=== PATIENT | male | born 1960 | race Caucasian/White ===

== ENCOUNTER 2023-12-27 07:08 | Emergency (ER) | payer OTHER, SELFPAY ==
[2023-12-27 07:08] VITALS: BP 187/93; BP 188/99; PULSE 112; PULSE 113; RESP 16; TEMP 36.8; O2SAT 98
--- NOTE | 2023-12-27 07:13 | EX.ED.DYSGE1 ---
HPI History of Present Illness Chief Complaint: Weakness Informant: patient Onset/Context/Timing Onset: Yesterday Context: Sudden Onset Timing: Continuous Quality: Aching Location: Right hip and proximal femur Worsened by: Weightbearing Relieved by: Nothing Narrative Narrative: Patient presents with pain in his right hip and femur that began yesterday. Patient states he twisted and felt a pop in his right hip and proximal thigh. Patient states he has been having difficulty bearing weight since this time. Patient states he has had weakness for approximately 2-1/2 years. Patient states this got worse yesterday when he had the popping sensation in his hip. Patient denies any paresthesias. PFSH PFSH Medical History no medical history no medical history Home Medications ?Medication ?Instructions ?Recorded ?Last Taken ?Type hydrocodone-acetaminophen 5-325mg 1 tab PO Q6H PRN PRN Pain 3 days 12/27/23 Unknown Rx 5mg-325mg #10 TABLETS Allergy/AdvReac Type Severity Reaction Status Date / Time No Known Allergies Allergy Verified 12/27/23 07:09 Surgical History no surgical history no surgical history Social History (Updated 12/27/23 @ 08:[address] Hi cMcloud, DO) Smoking Status: Current every day smoker tobacco type: cigarettes alcohol intake: current alcohol intake frequency: 3 or more drinks per day Alcohol type: hard liquor ROS ROS ED Constitutional Constitutional ED: Denies chills or fever(s) Eyes Eyes: Denies blurry vision or change in vision ENT ENT ED: Denies rhinorrhea or sore throat Cardiovascular Cardiovascular: Denies chest pain or palpitations Respiratory/Chest Respiratory/Chest: Denies cough or dyspnea Gastrointestinal Gastrointestinal: Denies nausea or vomiting Genitourinary Genitourinary ED: Denies dysuria or hematuria Musculoskeletal Musculoskeletal: Reports neck pain; Denies back pain Integumentary Denies abscess or rash Neurologic Neurologic: Reports weakness; Denies headache(s) Allergic/Immunologic Allergic/Immunologic ED: Denies mouth swelling or urticaria EXAM Physical Exam Const Vital Signs: 12/27/23 07:08 12/27/23 07:08 12/27/23 08:23 Temperature 98.2 F Temperature Source Oral Pulse Rate 113 H 112 H Respiratory Rate 16 16 Respiratory Effort Normal Non-Labored Respiratory Pattern Normal Blood Pressure 187/93 H 188/99 H Blood Pressure Mean 124 128 Pulse Ox 98 98 Oxygen Delivery Method Room Air Room Air Positive well nourished and well developed General Appearance ED: well developed and NAD HEENT Reports moist mucous membranes Neck supple and no JVD Extremity Extremity Narrative: There is tenderness to palpation over the right hip and proximal femur. There is no obvious deformity noted. There is no bony crepitance or step-off. There is minimal pain with internal and external rotation of the right lower extremity. Pedal pulses are equal bilateral. Sensation is intact to light touch bilaterally in the lower extremities. Strength is 5/5 bilateral in the lower extremities. Neuro oriented x3, CN's II-XII intact bilaterally and no sensory deficits noted Sensorium / Orientation: alert Motor Exam: strength 5/5 throughout MDM MDM MDM Narrative Medical decision making narrative: Differential diagnosis includes fracture, sprain, and contusion. X-rays of the right hip and right femur will be obtained to assess for fracture and dislocation. Radiography Diagnostic Testing: Clinical Impression(s) from Imaging Studies Femur X-Ray 12/27/23 08:28 IMPRESSION: No demonstrated fracture. Electronically Signed: Carmine Whitten MD at 8:55 EDT , Pelvis X-Ray 12/27/23 08:28 IMPRESSION: 1. Left superior and inferior pubic rami fractures. Electronically Signed: Carson Holm MD at 9:07 EDT , X-rays of the right femur were obtained. There are 4 views. On my independent interpretation, there is no acute fracture or dislocation noted. Radiologist also interpreted the x-rays and agrees. X-rays of the pelvis were obtained. There are 2 views. On my independent interpretation, there are nondisplaced fractures of the right superior and inferior pubic rami. Radiologist also interpreted the x-rays and agrees. Treatment and Re-Evaluation :: Patient was given a dose of J[place] here. Patient was able to ambulate in the emergency department with a walker. Patient states he felt safe ambulating with a walker. Patient was given a walker here. Patient was given a prescription for a short course of J[place]ura. Patient is given referral for primary care physician for follow-up care. Patient was instructed use ice to the area. Patient understood and was agreeable with the plan. All questions were answered. Discharge Plan Triage Chief Complaint: Weakness ED Provider: Hi Mccloud Dx/Rx/DC Orders Clinical Impression: Closed fracture of right inferior pubic ramus, Closed fracture of right superior pubic ramus Instructions: ED Pelvic Fracture Prescriptions: New hydrocodone-acetaminophen 5-325 mg tablet 1 tab PO Q6H PRN PRN (Reason: Pain) 3 Days Qty: 10 0RF Primary Care Provider: Care Physician,No Primary Referrals: Care Physician,No Primary [Primary Care Provider] - Print Language: Martiniquais Disposition Disposition: Home, Self Care
[2023-12-27] MEDS: HYDROcodone Bitartrate/Apap 5/325 Tablet PO (08:20)
[2023-12-27 08:22] VITALS: BMI 14.1
--- NOTE | 2023-12-27 08:28 | RAD_ITS ---
STUDY: X-RAY - PELVIS REASON FOR EXAM: Male, 63 years old. Injury/Pain TECHNIQUE: One view of the pelvis was obtained. COMPARISON: None. FINDINGS: A mildly displaced oblique fractures present through the mid aspect of the right inferior pubic ramus with minimal cortical offset. A small linear nondisplaced fractures also present through the medial aspect of the right superior pubic ramus. No fractures are seen in the hips. There is a non-specific bowel gas pattern. Normal visualized soft tissue structures. Normal bilateral iliac wings, sacroiliac joints and visualized sacrum. Normal pubic symphysis. Normal ischial tuberosities. Normal visualized right femoral head. Normal right acetabulum. Normal right hip joint. Normal visualized left femoral head. Normal left acetabulum. Normal left hip joint. Mild atherosclerotic plaque is present. RAD/Pelvis 1 or 2 Views IMPRESSION: 1. Left superior and inferior pubic rami fractures. Electronically Signed: Carson Holm MD at 9:07 EDT ,
--- NOTE | 2023-12-27 08:28 | RAD_ITS ---
STUDY: X-RAY - RIGHT FEMUR REASON FOR STUDY: Male, 63 years old. Injury / Pain TECHNIQUE: 4 views of the right femur. COMPARISON: None. FINDINGS: Normal visualized femur. There is no demonstrated fracture or destructive process. There are atherosclerotic vascular calcifications. RAD/Femur Min 2 Views IMPRESSION: No demonstrated fracture. Electronically Signed: Carmine Whitten MD at 8:55 EDT ,
[2023-12-27 09:43] VITALS: O2SAT 95
[2023-12-27 10:03] VITALS: BP 138/77; PULSE 76; RESP 15; TEMP 36.4; O2SAT 95
[2023-12-27 10:28] VITALS: BP 119/76; PULSE 64; RESP 15; TEMP 36.8; O2SAT 96
== END 2023-12-27 10:29 | disposition home or self-care (01) ==
PROVIDERS: Emergency Provider Emergency Medicine; Visit Provider Emergency Medicine
DX: S32.511A Fracture of superior rim of right pubis, initial encounter for closed fracture (principal); S32.591A Other specified fracture of right pubis, initial encounter for closed fracture; X50.1XXA Overexertion from prolonged static or awkward postures, initial encounter; F17.210 Nicotine dependence, cigarettes, uncomplicated
CPT/HCPCS: 72170; 73552; 99282

== ENCOUNTER 2024-07-16 09:38 | Inpatient (IN) | payer OTHER, SELFPAY ==
[2024-07-16] VITALS (50 sets, daily range): BP systolic 42–130; BP diastolic 16–97; PULSE 74–133; RESP 14–38; TEMP 35–37.8; O2SAT 55–97; BMI 18.3; BMI 16.0
--- NOTE | 2024-07-16 10:05 | RAD_ITS ---
PROCEDURE: CHEST 1 VIEW (PORTABLE) 07/16/2024 REASON FOR EXAM: LINE PLACEMENT TECHNIQUE: Frontal view of the chest. COMPARISON: None FINDINGS: There is an ET tube in position with its tip 5 cm above the level of the lamine. There is a central line on the right with its tip in the superior vena cava above the right atrium. There is an enteric tube with its tip below the field of view of this exam. There is interstitial and alveolar infiltrate throughout the right lung with consolidation in the lower aspect of the upper lobe. There is no pneumothorax or significant effusion. There is no visible acute bony abnormality. Aortic calcifications are noted. RAD/Chest 1 View (Portable) IMPRESSION: Tubes and lines in position. There is interstitial and alveolar infiltrate throughout the right lung with co nsolidation in the lower aspect of the upper lobe. Reading Location: [facility]
--- NOTE | 2024-07-16 10:05 | EKG12_ITS ---
Test Reason : UNRESPONSIVE Blood Pressure : */* mmHG Vent. Rate : 89 BPM Atrial Rate : 89 BPM P-R Int : 126 ms QRS Dur : 78 ms QT Int : 404 ms P-R-T Axes : 77 74 74 degrees QTcB Int : 491 ms Normal sinus rhythm Prolonged QT Abnormal ECG Confirmed by Kendrick Hayes ([id number]), sports editor SACHA NOLAN ([id number]) on 07/17/2024 9:08:44 AM Referred By: Confirmed By: Kendrick Hayes
[2024-07-16] MEDS: 0.9% Normal Saline (1000mL) 1,000 ML 999 ML IV ×3 (10:07→15:41)
[2024-07-16] MEDS: Norepinephrine 8 MG in 0.9% Normal Saline (250mL Bag) 242 ML 9.4 MG CONT INF (10:08)
[2024-07-16] MEDS: fentaNYL 100 MCG/2 ML Ampul 50 MCG IV (10:25)
[2024-07-16] MEDS: Propofol 10MG/Ml 1,000 MG/100 ML Bottle 3.4 MG CONT INF (10:28)
[2024-07-16 10:29] LABS: Hematocrit 35.7 % (40-54); Hemoglobin 11.6 g/dL (13.0-16.5); Mean Corp Hgb Conc 32.5 g/dL (32-36); Mean Corpuscular Hgb 33.3 pg (27.0-32.0); Mean Corpuscular Volume 102.6 fL (80-94); POSITIVE COUNT YES; POSITIVE MORPHOLOGY YES; Platelet Count 210 K/mm3 (150-450); RBC Distribution Width CV 14.7 % (11.6-14.6); RBC Distribution Width SD 55.4 fl (35.1-43.9); Red Blood Count 3.48 M/mm3 (4.6-6.2); White Blood Count 20.2 K/mm3 (4.4-11.0)
[2024-07-16 10:31] LABS: Base Excess -6 mmol/L (-2 to +2); Bicarbonate 21.2 mmol/L (22-26); Blood Gas Specimen Type ART; Mode AC; O2 Delivery Device Adult Vent; PEEP 5; PO2 77 mmHG (75-100); RR 14; SITE R Brach; SO2 93 % (95-99); Total Carbon Dioxide 23 mmol/L; pCO2 48.7 mmHg (35-45); pH 7.25 (7.35-7.45)
[2024-07-16] MEDS: Piperacil/Tazobactam 4.5 GM in 0.9% Normal Saline (100mL MB+) 100 ML IV (10:31)
[2024-07-16 10:32] LABS: Differential Indicated MANUAL DIFF
[2024-07-16 10:34] LABS: International Normalized Ratio 1.4
[2024-07-16 10:35] LABS: Partial Thromboplast Time 26.7 Seconds (24.1-36.2)
[2024-07-16 10:50] LABS: Acetaminophen (Tylenol) Level < 5.0 ug/mL (8.0-19.0); Alcohol, Blood (Medical)-Serum < 10.1 mg/dL (<=10.0); Salicylate < 0.5 mg/dL (2.8-20.0)
[2024-07-16 11:09] LABS: Lymphocyte 6 % (19-41); Metamyelocyte 5 % (0-1); Neutrophil-Band 14 % (0-5); Neutrophil-Segmented 71 % (47-70); Platelet Estimate ADEQUATE (ADEQ); Promyelocyte 4 % (0-0); Red Cell Morphology NORM C+C NORMAL (NORM C&C); Total Cells Counted 100 (MANUAL DIFF); Toxic Granulation 2+
[2024-07-16 11:10] LABS: Absolute Neutrophil Count 17.2 X10^3/uL (2.0-7.7)
[2024-07-16 11:11] LABS: Pathologist Review May foll
[2024-07-16 11:14] LABS: ALB/GLOB Ratio 0.4 RATIO (0.9-2.4); AST(SGOT) 89 U/L (<=37); Alanine Aminotransfer ALT/SGPT 32 U/L (<=46); Albumin, Serum 1.7 g/dL (3.4-4.8); Alkaline Phosphatase 61 U/L (40-129); Anion Gap 30 (5-15); BUN 123 mg/dL (4-19); BUN/Creat Ratio 27.9 RATIO (10-20); CPK Total, Creatine Kinase 416 U/L (24-195); Calcium,Total 7.7 mg/dL (7.6-11.0); Carbon Dioxide 19.6 mmol/L (21.0-32.0); Chloride 104 mmol/L (98-108); Creatinine, Serum 4.41 mg/dL (0.70-1.20); EST Glomerular Filtration Rate 14 (>60); Estimated Creatinine Clearance 13.88 ml/min (50-250); Globulin 3.7 g/dL (2.2-4.2); Glucose 151 mg/dL (70-99); Potassium 5.3 mmol/L (3.3-5.1); Protein, Total 5.4 g/dL (5.9-8.4); Sodium Level 153 mmol/L (133-145); Total Bilirubin 1.41 mg/dL (0.00-1.30); Troponin T High Sensitivity 71 ng/L (<=22)
[2024-07-16 11:15] LABS: Lactic Acid 10.9 mmol/L (0.0-2.0)
--- NOTE | 2024-07-16 11:27 | CT_ITS ---
PROCEDURE: BRAIN/HEAD WITHOUT CONTRAST 07/16/2024 REASON FOR EXAM: AMS Unresponsive. TECHNIQUE: Head CT without intravenous contrast. Coronal and Sagittal reconstruction series were provided. One or more dose reduction techniques were used (e.g., Automated exposure control, adjustment of the mA and/or kV according to patient size, use of iterative reconstruction technique. RADIATION DOSE SUMMARY: CTDlvol: 44.99 mGy COMPARISON: None FINDINGS: Brain: Low density in the periventricular white matter suggests mild chronic small vessel ischemic changes. CSF Spaces: Mild generalized cerebral atrophy Sinuses/Mastoids: Clear at visualized levels Bones: Unremarkable CT/Brain/Head without Contrast IMPRESSION: NO ACUTE FINDINGS Reading Location: [id number]
--- NOTE | 2024-07-16 11:27 | CT_ITS ---
PROCEDURE: SPINE CERVICAL WITHOUT CONTRAS 07/16/2024 REASON FOR EXAM: AMS TECHNIQUE: Cervical spine CT without contrast. Coronal and Sagittal reconstruction series were provided. One or more dose reduction techniques were used (e.g., Automated exposure control, adjustment of the mA and/or kV according to patient size, use of iterative reconstruction technique COMPARISON: None FINDINGS: An endotracheal tube is in-situ. Nasogastric tube is seen. It is seen traversing from the right side of the oropharynx into the esophagus. Alignment: Normal Vertebrae: Anterior spondylosis at multiple levels. Soft Tissues: Small amount of air is seen in the right prevertebral space. In the region of the origin of the esophagus at the C6-C7 level. A right-sided subclavian catheter is seen at that site. The air may be related to the insertion of the catheter. Atherosclerotic plaque formation of the carotid bifurcations bilaterally. Diffuse emphysematous changes in the upper lobes with consolidation in the posterior aspect of the right upper lobe. C1-2: Unremarkable C2-3: Unremarkable C3-4: Mild degree of disc space narrowing. Spondylosis. Uncovertebral arthrosis. Mild degree of bilateral neural foraminal stenosis. C4-5: Mild degree of disc space narrowing. Spondylosis. Uncovertebral arthrosis. Facet joint osteoarthritis. Mild degree of bilateral neural foraminal stenosis. C5-6: Moderate degree of disc space narrowing. Spondylosis. Facet joint osteoarthritis. Bilateral neural foraminal stenosis. C6-7: Moderate degree of disc space narrowing and spondylosis. Facet joint osteoarthritis. C7-T1: Degenerative changes. CT/Spine Cervical without Contras IMPRESSION: NO ACUTE CERVICAL FRACTURE. Endotracheal tube is seen as well as nasogastric tube. A right-sided central v enous catheter has been placed. Small amount of air is seen in the soft tissues as described in the prevertebra l space most likely secondary to the catheter placement. Reading Location: [facility]
--- NOTE | 2024-07-16 11:29 | CT_ITS ---
PROCEDURE: CT CHEST, ABD, PELVIS WO CONT 07/16/2024 REASON FOR EXAM: AMS HYPOTENSION TECHNIQUE: Chest, abdomen and pelvis CT without intravenous contrast. Coronal and Sagittal reconstruction series were provided. One or more dose reduction techniques were used (e.g., Automated exposure control, adjustment of the mA and/or kV according to patient size, use of iterative reconstruction technique. RADIATION DOSE SUMMARY: CTDlvol: 12.67 mGy DLP: 1157.75 mGycm COMPARISON: None FINDINGS: CT CHEST: Hardware: An endotracheal tube is in-situ. A nasogastric tube seen as well as a right-sided central venous catheter. Small amount of air is seen in the soft tissues secondary to the insertion of the right central line. Lymph nodes: Small benign-appearing mediastinal lymph nodes. Heart and Vasculature: Coronary artery calcifications are noted. Atherosclerotic calcifications of the thoracic aorta. Thoracic aorta and pulmonary arteries have normal contours; noncontrast technique limits evaluation. Coronary Artery Calcifications: Present Lungs and Airways: Dense consolidation in the posterior aspect of the right upper lobe with evidence of diffuse emphysematous changes worse in the right upper lobe. Dense consolidation is also seen in the right lower lobe. Mild increased markings at the left lung base. Pleura: No significant effusion is seen. Bones: Degenerative changes of the thoracic spine. CT ABDOMEN / PELVIS: Noncontrast technique limits evaluation of the abdominal and pelvic viscera. Liver: Normal size. No mass. Gallbladder: Sludge is seen within the gallbladder lumen. Spleen: Normal size. Pancreas: Normal size without evidence of mass surrounding inflammation or ductal dilation. Adrenals: Unremarkable Kidneys: Normal renal sizes. No hydronephrosis. Bladder: A catheter is seen within the urinary bladder. Mild degree of bladder wall thickening. Bowel: Colonic diverticulosis without diverticulitis. Appendix: The appendix is not identified. There is no inflammatory process identified in the right lower quadrant to suggest appendicitis. Lymph nodes: Unremarkable. Vasculature: Mild diffuse atherosclerotic calcifications are noted. Peritoneum / Retroperitoneum: Unremarkable Bones: Degenerative changes of the spine. CT/CT Chest, Abd, Pelvis WO Cont IMPRESSION: Consolidation in the right lung as described. A Mendez catheter is seen within the urinary bladder. Sludge is seen within the dependent portion of the gallbladder. Reading Location: [id number]
--- NOTE | 2024-07-16 11:50 | EX.ED.DYSGE1 ---
HPI History of Present Illness Chief Complaint: Unresponsive Informant: EMS Narrative Narrative: 64-year-old male was reportedly found unresponsive on the floor of his residence today. EMS arrived. They note that the patient was surrounded by a large volume of cognac bottles. He was last reportedly seen on Tuesday. Patient cannot provide any information. EMS notes hypotension and unresponsiveness. PFSH PFSH Allergy/AdvReac Type Severity Reaction Status Date / Time No Known Allergies Allergy Verified 07/16/24 14:56 Social History (Updated 07/16/24 @ 11:[address] Jesus Bourgeois, DO) Smoking Status: Current every day smoker alcohol intake: current alcohol intake frequency: 3 or more drinks per day Alcohol type: hard liquor ROS ROS ED Review of Systems ROS Unobtainable: due to mental status EXAM Physical Exam Const Vital Signs: 07/16/24 09:39 07/16/24 09:39 07/16/24 09:40 Temperature 95 F L Temperature Source Temporal Pulse Rate 78 Respiratory Rate 20 H Respiratory Depth Normal Respiratory Pattern Normal Blood Pressure 56/27 L 82/68 L Blood Pressure Mean 36 72 Pulse Ox 75 Oxygen Delivery Method Room Air Fraction of Inspired Oxygen (FIO2) 07/16/24 10:01 07/16/24 10:05 07/16/24 10:09 Temperature 100.1 F H Temperature Source Core Pulse Rate 96 Respiratory Rate 20 H 20 H Respiratory Depth Respiratory Pattern Blood Pressure 42/20 L Blood Pressure Mean 27 Pulse Ox 96 Oxygen Delivery Method Mechanical Ventilator Mechanical Ventilator Fraction of Inspired Oxygen (FIO2) 100 07/16/24 10:30 07/16/24 10:35 07/16/24 10:40 Temperature Temperature Source Pulse Rate 98 Respiratory Rate 19 H Respiratory Depth Respiratory Pattern Blood Pressure 100/53 L Blood Pressure Mean 64 Pulse Ox Oxygen Delivery Method Fraction of Inspired Oxygen (FIO2) 80 60 07/16/24 10:40 07/16/24 10:45 07/16/24 10:50 Temperature Temperature Source Pulse Rate 96 100 99 Respiratory Rate 20 H 22 H 21 H Respiratory Depth Respiratory Pattern Blood Pressure 110/87 H 124/84 H 112/84 H Blood Pressure Mean 94 97 92 Pulse Ox 97 95 95 Oxygen Delivery Method Fraction of Inspired Oxygen (FIO2) 07/16/24 10:55 07/16/24 11:00 07/16/24 11:05 Temperature Temperature Source Pulse Rate 100 100 98 Respiratory Rate 22 H 25 H 22 H Respiratory Depth Respiratory Pattern Blood Pressure 130/91 H 108/83 H 116/74 Blood Pressure Mean 104 92 86 Pulse Ox 96 95 96 Oxygen Delivery Method Fraction of Inspired Oxygen (FIO2) 07/16/24 11:10 07/16/24 11:12 07/16/24 11:15 Temperature Temperature Source Pulse Rate 98 103 H Respiratory Rate 22 H 28 H Respiratory Depth Respiratory Pattern Blood Pressure 96/72 108/97 H Blood Pressure Mean 80 103 Pulse Ox 96 93 Oxygen Delivery Method Fraction of Inspired Oxygen (FIO2) 40 07/16/24 11:20 07/16/24 11:25 07/16/24 11:30 Temperature Temperature Source Pulse Rate 100 101 H 98 Respiratory Rate 24 H 25 H 22 H Respiratory Depth Respiratory Pattern Blood Pressure 94/63 83/69 L 106/67 Blood Pressure Mean 72 75 77 Pulse Ox 92 91 92 Oxygen Delivery Method Fraction of Inspired Oxygen (FIO2) 07/16/24 11:35 07/16/24 11:56 07/16/24 11:57 Temperature Temperature Source Pulse Rate 95 96 Respiratory Rate 19 H 33 H Respiratory Depth Respiratory Pattern Blood Pressure 96/56 L 92/49 L Blood Pressure Mean 70 62 Pulse Ox 91 90 Oxygen Delivery Method Fraction of Inspired Oxygen (FIO2) 07/16/24 12:00 07/16/24 12:05 07/16/24 12:10 Temperature Temperature Source Pulse Rate 94 94 95 Respiratory Rate 33 H 32 H 26 H Respiratory Depth Respiratory Pattern Blood Pressure 81/44 L 76/45 L 80/61 L Blood Pressure Mean 57 54 69 Pulse Ox 84 83 84 Oxygen Delivery Method Fraction of Inspired Oxygen (FIO2) 07/16/24 12:14 07/16/24 12:15 07/16/24 12:20 Temperature 98.9 F Temperature Source Core Pulse Rate 97 95 97 Respiratory Rate 25 H 16 22 H Respiratory Depth Respiratory Pattern Blood Pressure 80/61 L 89/68 L 87/62 L Blood Pressure Mean 67 75 71 Pulse Ox 91 93 91 Oxygen Delivery Method Mechanical Ventilator Fraction of Inspired Oxygen (FIO2) 07/16/24 12:25 07/16/24 12:30 07/16/24 12:35 Temperature Temperature Source Pulse Rate 97 95 95 Respiratory Rate 20 H 30 H 17 Respiratory Depth Respiratory Pattern Blood Pressure 92/71 76/64 L 81/64 L Blood Pressure Mean 79 70 72 Pulse Ox 92 92 92 Oxygen Delivery Method Fraction of Inspired Oxygen (FIO2) 07/16/24 12:38 07/16/24 12:40 07/16/24 12:45 Temperature Temperature Source Pulse Rate 96 96 Respiratory Rate 28 H 20 H Respiratory Depth Respiratory Pattern Blood Pressure 76/59 L Blood Pressure Mean 67 Pulse Ox 88 91 Oxygen Delivery Method Fraction of Inspired Oxygen (FIO2) 60 07/16/24 13:00 07/16/24 13:01 07/16/24 13:30 Temperature 99.5 F H Temperature Source Pulse Rate 96 96 96 Respiratory Rate 26 H 26 H 34 H Respiratory Depth Respiratory Pattern Blood Pressure 96/70 96/70 70/52 L Blood Pressure Mean 78 78 60 Pulse Ox 93 93 92 Oxygen Delivery Method Mechanical Ventilator Fraction of Inspired Oxygen (FIO2) HEENT Reports normocephalic, head/scalp atraumatic and dry mucous membranes Mouth ED: Yes dry mucous membranes Mouth: dry mucous membranes Eyes Eyes Narrative: Pupils 4 mm bilaterally very sluggish with minimal responsiveness to light Neck no lymphadenopathy, supple and no JVD Resp Resp Narrative: Agonal breathing having bagged respirations Cardio regular rate, regular rhythm and no murmurs Rate: tachycardic GI Inspection: Negative for abdominal distention Auscultation: hypoactive bowel sounds Palpation: soft Back/Spine Back/Spine Narrative: Excoriation/erythema of the buttocks sacral region Extremity Extremity Narrative: Cachectic extremities. Mottling of the lower extremities and upper extremities Neuro Neuro Narrative: Patient is unresponsive. Do not get any response to pain. No response during intubation. Psych Mood & Affect: tearful Skin Skin Narrative: See back exam mottling as described above Sepsis Attestation Sepsis Alert: Yes Sepsis Attestation: Agree w/Sepsis Date exam was performed: 07/16/24 Time exam was performed: 12:00 Possible Source of Sepsis: Pulmonary Sepsis Organ Dysfunction Criteria Present: SBP < 90 mmHg or MAP < 65 mmHg, Acute Respiratory Failure (New need for BiPAP/CPAP or MV), Creatinine > 2.0 mg/dL, Lactic Acid > 2 mmol/L and New/Unexplained change in mental status Fluid Resuscitation Fluid resuscitation indicated?: Yes Fluid Resuscitation ordered: 30 ml/kg fluid bolus ordered Amount of fluid ordered: 2,000 Sepsis Note Date exam was performed: 07/16/24 Time exam was performed: 12:00 Sepsis Attestation: Sepsis re-evaluation was performed Response to fluids: Non Fluid responsive hypotension and Vasopressors started MDM MDM MDM Narrative Medical decision making narrative: Differential diagnosis includes but not limited to hypovolemic shock sepsis intracranial hemorrhage pneumonia UTI renal failure electrolyte abnormalities dehydration Patient brought into the resuscitation room. Patient underwent endotracheal intubation without sedation using a 7.5 endotracheal tube. This was passed on the first attempt without difficulty. IV access was not easily attainable by nursing. Therefore a right IJ triple-lumen central line was placed by this physician under ultrasound guidance using the modified Seldinger technique and sterile conditions. This was obtained on the first attempt without difficulty. Guidewire removed dark red nonpulsatile blood was obtained. Lines were flushed and locked. OG tube was placed by nursing. My independent interpretation of the plain film chest x-ray is adequate positioning of the endotracheal tube central line and OG tube. There is noted to be right sided infiltrates. My concern would be for aspiration. Zosyn was administered after blood cultures. Mendez catheter was placed. Laboratory analysis demonstrates a white count of 20.2 hemoglobin 1.6 platelet count of 210. INR 1.4. Creatinine 4.41 with a BUN of 123 CO2 19.6 sodium 153 potassium 5.3 glucose 151. Lactic acid significantly elevated 10.9. Total CK4 60 and troponin 71. Salicylates acetaminophen and ethyl alcohol negative. pH 7.247 with a PCO2 48.7 PaO2 of 77.1 HCO3 21.2. Patient was started on IV fluids for 2 L total bolus followed by maintenance as well as Levophed. Propofol was administered for sedation. CT head cervical spine chest abdomen pelvis was obtained read by radiology and reviewed by myself. He has yet to make any urine. Plan of care will be admission into ICU. History & Record Review Discussion w/independent historian: EMS personnel Additional record(s) reviewed:: Prior ED visit and Prior labs Lab Data Attestation: I reviewed the patient's lab results. Labs: Laboratory Results - last 24 hr 07/16/24 10:15 WBC 20.2 H RBC 3.48 L Hgb 11.6 L Hct 35.7 L MCV 102.6 H MCH 33.3 H MCHC 32.5 RDW Std Deviation 55.4 H RDW Coeff of Trini 14.7 H Plt Count 210 MPV 13.0 H Neut % (Auto) Not Reportable Absolute Neuts (auto) 17.2 H Absolute Lymphs (auto) 1.20 Total Counted 100 Neutrophils % (Manual) 71 H Band Neutrophils % 14 H Lymphocytes % (Manual) 6 L Metamyelocytes % 5 H Promyelocytes % 4 H Diff Path Review May foll Toxic Granulation 2+ Platelet Estimate ADEQUATE RBC Morphology NORM C+C PT 17.0 H INR 1.4 APTT 26.7 Sodium 153 H Potassium 5.3 H Chloride 104 Carbon Dioxide 19.6 L Anion Gap 30 H BUN 123 H* Creatinine 4.41 H Estim Creat Clear Calc 13.88 L Est GFR (MDRD) Non-Af 14 L BUN/Creatinine Ratio 27.9 H Glucose 151 H Lactic Acid 10.9 H* Calcium 7.7 Total Bilirubin 1.41 H AST 89 H ALT 32 Alkaline Phosphatase 61 Total Creatine Kinase 416 H Troponin T High Sens 71 H* Total Protein 5.4 L Albumin 1.7 L Globulin 3.7 Albumin/Globulin Ratio 0.4 L Triglycerides 105 Salicylates < 0.5 L Acetaminophen < 5.0 L Ethyl Alcohol < 10.1 ABG Data ABG results: ABG 07/16/24 10:27 Specimen Type ART Sample Site R Brach pH 7.25 L Bicarbonate Actual 21.2 L Total CO2 23 Base Excess -6 L O2 Saturation 93 L O2 % 100.0 ABG pCO2 48.7 H ABG pO2 77 Respiration Rate 14 O2 Delivery Device Adult Vent Vent Mode AC Tidal Volume 450.0 POC PEEP 5 Radiography Diagnostic Testing: Clinical Impression(s) from Imaging Studies Chest X-Ray 07/16/24 10:05 IMPRESSION: Tubes and lines in position. There is interstitial and alveolar infiltrate throughout the right lung with consolidation in the lower aspect of the upper lobe. Reading Location: [facility] Brain CT 07/16/24 11:27 IMPRESSION: NO ACUTE FINDINGS Reading Location: [facility] Cervical Spine CT 07/16/24 11:27 IMPRESSION: NO ACUTE CERVICAL FRACTURE. Endotracheal tube is seen as well as nasogastric tube. A right-sided central venous catheter has been placed. Small amount of air is seen in the soft tissues as described in the prevertebral space most likely secondary to the catheter placement. Reading Location: [id number] Chest/Abdomen/Pelvis CT 07/16/24 11:29 IMPRESSION: Consolidation in the right lung as described. A Mendez catheter is seen within the urinary bladder. Sludge is seen within the dependent portion of the gallbladder. Reading Location: [id number] EKG Initial EKG: Attestation: I personally reviewed and interpreted this EKG as follows: Comments: Normal sinus rhythm ventricular rate of 89 bpm. Management Discussion w/another healthcare provider: Hospitalist Critical Care Time Critical Care Time: Yes Critical care time (excluding procedures): 30-74 minutes (42 min), Including time spent:, Discussing w/Patient &/or Family/[employer] Sales Beauty Advisor, Discussing w/Consultants, Arranging Admission or Transfer and Performing Direct Patient Care at Bedside Discharge Plan Dx/Rx/DC Orders Clinical Impression: Unresponsive, Acute respiratory failure, Acute renal failure, Hypovolemic shock, Aspiration pneumonia, Hypernatremia, Septic shock Disposition Disposition: Acute Care Hospital [facility] Discharge Date/Time: 07/16/24 14:19
[2024-07-16 12:08] LABS: Triglycerides 105 mg/dL
[2024-07-16] MEDS: 0.9% Normal Saline (1000mL) 1,000 ML 200 ML IV ×2 (13:00→14:50)
--- NOTE | 2024-07-16 14:03 | PCM.HP.STD ---
HPI - General General Date of Admission: 07/16/24 Date of Service: 07/16/24 Chief Complaint: unresponsive. HPI Narrative SOMMER HORN, is a 64 M who presents after being found unresponsive. Patient did not report to work nor call off so his bus contacted EMS came to his house and found the patient was unresponsive. Patient was hypotensive with systolic in the 40s. Patient was intubated without sedation and had a triple-lumen catheter placed in his right IJ. He received 2 L of IV fluid to clear 30 cc/kg of IV fluid as well as started on norepinephrine which has not since improved his blood pressure. He had a CT that showed a right lower lobe consolidation. He received pip-tazo in the emergency room. Patient is unable to speak and there is no family available at bedside. [facility] unable to obtain unable to obtain unable to obtain Social History (Updated 07/16/24 @ 11:[address] Jesus Bourgeois, ) Smoking Status: Current every day smoker alcohol intake: current alcohol intake frequency: 3 or more drinks per day Alcohol type: hard liquor ROS Review of Systems ROS Unobtainable: due to encephalopathy and due to endotracheal tube Vital Signs Vital Signs Vital Signs: 07/16/24 09:39 07/16/24 09:39 07/16/24 09:40 Temperature 35 C L Temperature Source Temporal Pulse Rate 78 Respiratory Rate 20 H Respiratory Depth Normal Respiratory Pattern Normal Blood Pressure 56/27 L 82/68 L Blood Pressure Mean 36 72 Pulse Ox 75 Oxygen Delivery Method Room Air Fraction of Inspired Oxygen (FIO2) 07/16/24 10:01 07/16/24 10:05 07/16/24 10:09 Temperature 37.8 C H Temperature Source Core Pulse Rate 96 Respiratory Rate 20 H 20 H Respiratory Depth Respiratory Pattern Blood Pressure 42/20 L Blood Pressure Mean 27 Pulse Ox 96 Oxygen Delivery Method Mechanical Ventilator Mechanical Ventilator Fraction of Inspired Oxygen (FIO2) 100 07/16/24 10:30 07/16/24 10:35 07/16/24 10:40 Temperature Temperature Source Pulse Rate 98 Respiratory Rate 19 H Respiratory Depth Respiratory Pattern Blood Pressure 100/53 L Blood Pressure Mean 64 Pulse Ox Oxygen Delivery Method Fraction of Inspired Oxygen (FIO2) 80 60 07/16/24 10:40 07/16/24 10:45 07/16/24 10:50 Temperature Temperature Source Pulse Rate 96 100 99 Respiratory Rate 20 H 22 H 21 H Respiratory Depth Respiratory Pattern Blood Pressure 110/87 H 124/84 H 112/84 H Blood Pressure Mean 94 97 92 Pulse Ox 97 95 95 Oxygen Delivery Method Fraction of Inspired Oxygen (FIO2) 07/16/24 10:55 07/16/24 11:00 07/16/24 11:05 Temperature Temperature Source Pulse Rate 100 100 98 Respiratory Rate 22 H 25 H 22 H Respiratory Depth Respiratory Pattern Blood Pressure 130/91 H 108/83 H 116/74 Blood Pressure Mean 104 92 86 Pulse Ox 96 95 96 Oxygen Delivery Method Fraction of Inspired Oxygen (FIO2) 07/16/24 11:10 07/16/24 11:12 07/16/24 11:15 Temperature Temperature Source Pulse Rate 98 103 H Respiratory Rate 22 H 28 H Respiratory Depth Respiratory Pattern Blood Pressure 96/72 108/97 H Blood Pressure Mean 80 103 Pulse Ox 96 93 Oxygen Delivery Method Fraction of Inspired Oxygen (FIO2) 40 07/16/24 11:20 07/16/24 11:25 07/16/24 11:30 Temperature Temperature Source Pulse Rate 100 101 H 98 Respiratory Rate 24 H 25 H 22 H Respiratory Depth Respiratory Pattern Blood Pressure 94/63 83/69 L 106/67 Blood Pressure Mean 72 75 77 Pulse Ox 92 91 92 Oxygen Delivery Method Fraction of Inspired Oxygen (FIO2) 07/16/24 11:35 07/16/24 11:56 07/16/24 11:57 Temperature Temperature Source Pulse Rate 95 96 Respiratory Rate 19 H 33 H Respiratory Depth Respiratory Pattern Blood Pressure 96/56 L 92/49 L Blood Pressure Mean 70 62 Pulse Ox 91 90 Oxygen Delivery Method Fraction of Inspired Oxygen (FIO2) 07/16/24 12:00 07/16/24 12:05 07/16/24 12:10 Temperature Temperature Source Pulse Rate 94 94 95 Respiratory Rate 33 H 32 H 26 H Respiratory Depth Respiratory Pattern Blood Pressure 81/44 L 76/45 L 80/61 L Blood Pressure Mean 57 54 69 Pulse Ox 84 83 84 Oxygen Delivery Method Fraction of Inspired Oxygen (FIO2) 07/16/24 12:14 07/16/24 12:15 07/16/24 12:20 Temperature 37.2 C Temperature Source Core Pulse Rate 97 95 97 Respiratory Rate 25 H 16 22 H Respiratory Depth Respiratory Pattern Blood Pressure 80/61 L 89/68 L 87/62 L Blood Pressure Mean 67 75 71 Pulse Ox 91 93 91 Oxygen Delivery Method Mechanical Ventilator Fraction of Inspired Oxygen (FIO2) 07/16/24 12:25 07/16/24 12:30 07/16/24 12:35 Temperature Temperature Source Pulse Rate 97 95 95 Respiratory Rate 20 H 30 H 17 Respiratory Depth Respiratory Pattern Blood Pressure 92/71 76/64 L 81/64 L Blood Pressure Mean 79 70 72 Pulse Ox 92 92 92 Oxygen Delivery Method Fraction of Inspired Oxygen (FIO2) 07/16/24 12:38 07/16/24 12:40 07/16/24 12:45 Temperature Temperature Source Pulse Rate 96 96 Respiratory Rate 28 H 20 H Respiratory Depth Respiratory Pattern Blood Pressure 76/59 L Blood Pressure Mean 67 Pulse Ox 88 91 Oxygen Delivery Method Fraction of Inspired Oxygen (FIO2) 60 07/16/24 13:00 07/16/24 13:01 07/16/24 13:30 Temperature 37.5 C H Temperature Source Pulse Rate 96 96 96 Respiratory Rate 26 H 26 H 34 H Respiratory Depth Respiratory Pattern Blood Pressure 96/70 96/70 70/52 L Blood Pressure Mean 78 78 60 Pulse Ox 93 93 92 Oxygen Delivery Method Mechanical Ventilator Fraction of Inspired Oxygen (FIO2) 07/16/24 14:00 Temperature Temperature Source Pulse Rate 97 Respiratory Rate 24 H Respiratory Depth Respiratory Pattern Blood Pressure 89/75 L Blood Pressure Mean 82 Pulse Ox 94 Oxygen Delivery Method Fraction of Inspired Oxygen (FIO2) Weight Weight: 56.5 kg Body Mass Index (BMI) 18.3 Physical Exam Narrative POCUS FAST exam: A subxiphoid view of the heart showed generalized contraction throughout. IVC was directly visualized and did show collapsibility with inspiration. No fluid noted around the liver nor spleen. No hydronephrosis noted with kidneys. Hepatis [place] of the right lower lobe. Curtain sign on the left. Const Constitutional Narrative: Intubated. Sedated. HEENT HEENT Narrative: Mucous membranes dry. Temporal wasting. ET tube in place Eyes Eyes Narrative: Eyes tracking laterally. Positive corneal reflex. Resp Resp Narrative: Coarse breath sounds bilaterally Cardio regular rate, regular rhythm, S1 normal heart sound and S2 normal heart sound GI normal to inspection, nondistended, normoactive bowel sounds, soft to palpation, non-tender and non-distended Extremity normal to inspection Results Lab / Micro Data 07/16/24 10:15 07/16/24 10:15 Labs: Laboratory Results - last 24 hr 07/16/24 10:15: WBC 20.2 H, RBC 3.48 L, Hgb 11.6 L, Hct 35.7 L, MCV 102.6 H, MCH 33.3 H, MCHC 32.5, RDW Std Deviation 55.4 H, RDW Coeff of Trini 14.7 H, Plt Count 210, MPV 13.0 H, Neut % (Auto) Not Reportable, Absolute Neuts (auto) 17.2 H, Absolute Lymphs (auto) 1.20, Total Counted 100, Neutrophils % (Manual) 71 H, Band Neutrophils % 14 H, Lymphocytes % (Manual) 6 L, Metamyelocytes % 5 H, Promyelocytes % 4 H, Diff Path Review May foll, Toxic Granulation 2+, Platelet Estimate ADEQUATE, RBC Morphology NORM C+C, PT 17.0 H, INR 1.4, APTT 26.7, Sodium 153 H, Potassium 5.3 H, Chloride 104, Carbon Dioxide 19.6 L, Anion Gap 30 H, BUN 123 H*, Creatinine 4.41 H, Estim Creat Clear Calc 13.88 L, Est GFR (MDRD) Non-Af 14 L, BUN/Creatinine Ratio 27.9 H, Glucose 151 H, Lactic Acid 10.9 H*, Calcium 7.7, Total Bilirubin 1.41 H, AST 89 H, ALT 32, Alkaline Phosphatase 61, Total Creatine Kinase 416 H, Troponin T High Sens 71 H*, Total Protein 5.4 L, Albumin 1.7 L, Globulin 3.7, Albumin/Globulin Ratio 0.4 L, Triglycerides 105, Salicylates < 0.5 L, Acetaminophen < 5.0 L, Ethyl Alcohol < 10.1 ABG Data ABG results: ABG 07/16/24 10:27 Specimen Type ART Sample Site R Brach pH 7.25 L Bicarbonate Actual 21.2 L Total CO2 23 Base Excess -6 L O2 Saturation 93 L O2 % 100.0 ABG pCO2 48.7 H ABG pO2 77 Respiration Rate 14 O2 Delivery Device Adult Vent Vent Mode AC Tidal Volume 450.0 POC PEEP 5 Imaging Radiology Impression Chest X-Ray 07/16/24 10:05 IMPRESSION: Tubes and lines in position. There is interstitial and alveolar infiltrate throughout the right lung with consolidation in the lower aspect of the upper lobe. Reading Location: [facility] Brain CT 07/16/24 11:27 IMPRESSION: NO ACUTE FINDINGS Reading Location: [id number] Cervical Spine CT 07/16/24 11:27 IMPRESSION: NO ACUTE CERVICAL FRACTURE. Endotracheal tube is seen as well as nasogastric tube. A right-sided central venous catheter has been placed. Small amount of air is seen in the soft tissues as described in the prevertebral space most likely secondary to the catheter placement. Reading Location: [id number] Chest/Abdomen/Pelvis CT 07/16/24 11:29 IMPRESSION: Consolidation in the right lung as described. A Mendez catheter is seen within the urinary bladder. Sludge is seen within the dependent portion of the gallbladder. Reading Location: [id number] Assessment & Plan Assessment/Plan (1) Septic shock: PLAN: Patient already received 30 cc/kg of IV fluid and is now on norepinephrine drip. Patient had a right IJ triple-lumen catheter placed Follow-up cultures (2) Pneumonia: PLAN: Suspected aspiration possible gram-negative but cannot rule out MRSA at this time. Antibiotics with pip-tazo and vancomycin Pulmonary toilet (3) Acute respiratory failure: PLAN: Secondary to shock and pneumonia Intubated. Pulmonary on consultation for ventilator management. Ventilator orders placed (4) Acute renal failure: PLAN: Right secondary to dehydration. Continue with IV fluids. (5) Hypernatremia: PLAN: Right secondary to dehydration. IV fluids and monitor. (6) Encephalopathy: PLAN: Metabolic secondary to shock, pneumonia and respiratory failure. Head CT showed no acute process. PLAN: Plan Alcohol abuse: Patient was surrounded by several bottles of cognac. Monitor for signs symptoms of withdrawal Severe cachexia. Patient is very malnourished. Nutrition to see and advise. VTE prophylaxis with subcu heparin Family contacted. Patient has a stepson and an ex- but they are in [place]. They plan, at least one of them, is coming to the hospital to see the patient. It appears that the patient does not have any relatives who live nearby. Charges/Coding Visit Charges Inpatient E&M: 97375 Init Hosp L3
[2024-07-16 14:21] LABS: Reflex Lactate? Y
--- NOTE | 2024-07-16 14:56 | NURSING ---
Spoke with patient's step son and ex- who stated that patient has no allergies
--- NOTE | 2024-07-16 15:17 | PCM.RX.CS ---
Consult Antibiotic Management Pharmacy has been consulted to manage selected antibiotic: Vancomycin Type of Intervention Type of Consult: New start Suspected Infection Suspected Infection: Sepsis Labs Labs: Sodium 153 mmol/L (133-145) H 07/16/24 10:15 Potassium 5.3 mmol/L (3.3-5.1) H 07/16/24 10:15 Chloride 104 mmol/L (98-108) 07/16/24 10:15 Carbon Dioxide 19.6 mmol/L (21.0-32.0) L 07/16/24 10:15 Anion Gap 30 (5-15) H 07/16/24 10:15 BUN 123 mg/dL (4-19) H* 07/16/24 10:15 Creatinine 4.41 mg/dL (0.70-1.20) H 07/16/24 10:15 Est GFR (MDRD) Non-Af 14 (>60) L 07/16/24 10:15 BUN/Creatinine Ratio 27.9 RATIO (10-20) H 07/16/24 10:15 Glucose 151 mg/dL (70-99) H 07/16/24 10:15 Goal Trough Goal Trough: 15-20 mcg/mL Pharmacy Plan for Drug Dosing Pharmacy Plan for Drug Dosing: NEW START IV VANCOMYCIN Consulting Physician: Dr. Richardson Indication: Septic Shock Goal Trough: 15-20 SrCr: 4.41 CrCl: 13 mL/min Comments: Loading dose of 1500mg IV x1 ordered Vancomycin Dose: patient with SAMI, current estimated CrCl is less than 20 mL/min. Will not schedule vancomycin at this time. Further dosing per random levels until SCr improves/ stabilizes. Pending Level: *RANDOM* 07/18/24 @0600 Pharmacy Service will continue to monitor and adjust dosing as required.
[2024-07-16 15:37] LABS: CPK Total, Creatine Kinase 687 U/L (24-195); Triglycerides 125 mg/dL
--- NOTE | 2024-07-16 15:45 | RAD_ITS ---
PROCEDURE: CHEST 1 VIEW (PORTABLE) 07/16/2024 REASON FOR EXAM: WORSENING HYPOXIA TECHNIQUE: Frontal view of the chest. COMPARISON: 07/16/2024 FINDINGS: Hardware: Stable endotracheal tube, feeding tube and right central venous catheter. Heart: Cardiac and mediastinal contours are stable. Lungs: Slight interval improvement consolidative opacities with, with no complete opacification of the right lia thorax. Diffuse emphysema. No pleural effusion. No pneumothorax. Bones: Degenerative changes are identified within the thoracic spine. Other: RAD/Chest 1 View (Portable) IMPRESSION: Slight interval improvement right lia thorax consolidative opacities. Reading Location: [facility]
[2024-07-16 16:10] LABS: Allen Test Positive; Base Excess -16 mmol/L (-2 to +2); Bicarbonate 13.9 mmol/L (22-26); Blood Gas Specimen Type ART; Mode AC; O2 Delivery Device Adult Vent; PEEP 8; PO2 70 mmHG (75-100); RR 14; SITE R Radial; SO2 86 % (95-99); Time Given 16:07:36; Total Carbon Dioxide 15 mmol/L; pCO2 46.3 mmHg (35-45); pH 7.09 (7.35-7.45)
[2024-07-16] MEDS: Vasopressin 20 UNITS in 0.9% Normal Saline (50mL Bag) 24 ML 3 UNITS CONT INF (16:42)
[2024-07-16] MEDS: Norepinephrine 8 MG in 0.9% Normal Saline (250mL Bag) 242 ML 56.3 MG CONT INF (16:43)
[2024-07-16] MEDS: Vancomycin HCl 1,500 MG in 0.9% Normal Saline (500mL Bag) 500 ML 250 MG IV (16:44)
[2024-07-16] MEDS: Sodium Bicarbonate 8.4% 50 ML Syringe 50 MEQ IV ×2 (17:39)
[2024-07-16] MEDS: Hydrocortisone Sod Succinate 100 MG/2 ML Vial 50 MG IV (18:10)
--- NOTE | 2024-07-16 19:00 | EXP.PCM_ITS ---
Preliminary Cause of Preliminary Cause of Preliminary Cause of : septic shock. pneumonia. Date of Admission: 07/16/24 Date of : 07/17/24 Principle Diagnosis Problem List: Active and Suspected Problems (Updated 07/17/24 @ 12:33 by Ingris Cuello) Septic shock (Acute) Hypernatremia (Acute) Aspiration pneumonia (Acute) Hypovolemic shock (Acute) Acute renal failure (Acute) Acute respiratory failure (Acute) Unresponsive (Acute) Encephalopathy (Acute) Pneumonia (Acute) Hospital Course 62-year-old male found unresponsive when he did not come to work. Patient was unresponsive, surrounded by bottles of cognac. Patient had a systolic blood pressure in the 40s when he presented to the emergency room. He was intubated without any sedation. CAT scan showed a very dense right lower lobe infiltrate. Patient had a triple-lumen catheter placed in his right IJ as IV access was difficult to come by and he eventually would need pressor support as his blood pressure did not respond to IV fluids. Patient was put on broad-spectrum antibiotics. He was put on 2 pressors. I did discuss the case with the patient's stepson, Mr. Jung, and they are coming from [facility] to see the patient. I did talk with him and he spoke with his mother, who was the patient's ex-, and they agreed to make the patient DNR [facility] arrest. Unfortunately the patient before they arrived. The patient on July 16, 2024 at 1824. The family the family did arrive and wished to speak with physician the following day on the . So I updated them about his prognosis, diagnosis and his hospital course. They have already been working with home. Greater than 90 minutes spent in all evaluate the patient, performing bedside ultrasounds, reevaluate the patient, discussing with family. Visit Charges Inpatient E&M: 73831 Disch Hosp >30min
--- NOTE | 2024-07-16 19:34 | NURSING ---
Patient passed at 1824. Verified by second RN Daria. Dr. Richardson, Nursing Advertising Manager, and patient family notified.
== END 2024-07-16 22:46 | DRG 682 ==
LOC: ED 12:42 → ICU 13:19
PROVIDERS: Emergency Provider Emergency Medicine
DX: N17.9 Acute kidney failure, unspecified (principal); J96.00 Acute respiratory failure, unspecified whether with hypoxia or hypercapnia; R65.21 Severe sepsis with septic shock; J69.0 Pneumonitis due to inhalation of food and vomit; J18.9 Pneumonia, unspecified organism; G93.41 Metabolic encephalopathy; R64 Cachexia; E46 Unspecified protein-calorie malnutrition; E87.0 Hyperosmolality and hypernatremia; Z68.1 Body mass index [BMI] 19.9 or less, adult; R57.1 Hypovolemic shock; F10.10 Alcohol abuse, uncomplicated; Z66 Do not resuscitate
CPT/HCPCS: 31500; 31720; 36556; 36600; 51702; 70450; 71045; 71250; 72125; 74176; 80053; 80143; 80179; 82077; 82550; 82803; 83605; 84478; 84484; 85025; 85610; 85730; 87040; 87449; 93005; 94002; 97802; 99252; 99285; A4216; C1751; G0463